=== PATIENT | male | born 1955 | race Caucasian/White ===

== ENCOUNTER 2017-07-01 00:09 | Observation (INO) | payer MEDICAID ==
[2017-07-01 00:09] VITALS: BMI 28.3
--- NOTE | 2017-07-01 00:38 | C.PDOC ---
History Of Present Illness The patient presents to the ED for evaluation of generalized weakness which began around 2-3 days ago. Patient also reports occasional dizziness. He denies chest pain, palpitations, or tinnitus. Time Seen by Provider: 07/01/17 00:37 Chief Complaint (Nursing): Dizziness/Lightheaded History Per: Patient History/Exam Limitations: no limitations Onset/Duration Of Symptoms: Days (2-3) Current Symptoms Are (Timing): Still Present Fall Associated With With Symptoms: No Severity: None Pain Scale Rating Of: 0 Additional History Per: Patient Past Medical History Reviewed: Historical Data, Nursing Documentation, Vital Signs Vital Signs: Last Vital Signs Temp 97.8 F 07/01/17 00:11 Pulse 66 07/01/17 02:40 Resp 12 07/01/17 02:40 BP 118/68 07/01/17 02:40 Pulse Ox 97 07/01/17 03:08 - Medical History PMH: Diabetes, HTN Surgical History: No Surg Hx Family History: States: Unknown Family Hx - Social History Hx Tobacco Use: No Hx Alcohol Use: No Hx Substance Use: No - Immunization History Hx Tetanus Toxoid Vaccination: Yes Hx Influenza Vaccination: Yes Hx Pneumococcal Vaccination: Yes Review Of Systems Constitutional: Positive for: Weakness. Negative for: Fever, Chills Cardiovascular: Negative for: Chest Pain, Palpitations Respiratory: Negative for: Cough, Shortness of Breath Gastrointestinal: Negative for: Nausea, Vomiting, Abdominal Pain Skin: Negative for: Rash, Lesions, Jaundice, Bruising Neurological: Positive for: Dizziness Psych: Negative for: Suicidal ideation Physical Exam - Physical Exam Appears: Non-toxic, No Acute Distress Skin: Warm, Dry Head: Normacephalic Eye(s): bilateral: Normal Inspection Oral Mucosa: Moist Neck: Supple Chest: Symmetrical, No Deformity, No Tenderness Cardiovascular: Rhythm Regular Respiratory: No Rales, No Rhonchi, No Wheezing Extremity: Normal ROM, Capillary Refill (less than 2 seconds ) Neurological/Psych: Oriented x3 Gait: Steady ED Course And Treatment - Laboratory Results Result Diagrams: 07/01/17 00:37 07/01/17 00:37 ECG: Interpreted By Me, Viewed By Me ECG Rhythm: Sinus Rhythm (72), Nonspecific Changes O2 Sat by Pulse Oximetry: 97 (on RA) Pulse Ox Interpretation: Normal Progress Note: Bloodwork and CT Head ordered and reviewed. NIHSS Stroke Scale - Date/Time Evaluation Performed Date Performed: 07/01/17 Time Performed: 00:38 When Was NIHSS Performed: Baseline - How Severe is the Stoke Level of Consciousness: 0=Alert LOC to Questions: 0=Both comments correct LOC to commands: 0=Obeys both correctly Best Gaze: 0=Normal Visual: 0=No visual loss Facial: 0=Normal Motor Arm - Left: 0=No drift Motor Arm - Right: 0=No drift Motor Leg - Left: 0=No drift Motor Leg - Right: 0=No drift Limb Ataxia: 0=Absent Sensory: 0=Normal Best Language: 0=No aphasia Dysarthia: 0=Normal articulation Extinction & Inattention (Neglect): 0=Normal, no object Score: 0 Severity Of Stroke: 0= No Stroke Disposition Discussed With : Jaime Lynne Comment: accepted the pt on his service and took over the care at 3:22 AM Doctor Will See Patient In The: Hospital Counseled Patient/Family Regarding: Studies Performed, Diagnosis - Disposition Disposition: HOSPITALIZED Disposition Time: 00:38 Condition: FAIR Forms: [employer] (Khmer) - POA Present On Arrival: Poor Glycemic Control - Clinical Impression Clinical Impression: Dizziness, Uncontrolled diabetes mellitus - Scribe Statement The provider has reviewed the documentation as recorded by the Scribe (Tiffanie Hilario) Provider Attestation: All medical record entries made by the Scribe were at my direction and personally dictated by me. I have reviewed the chart and agree that the record accurately reflects my personal performance of the history, physical exam, medical decision making, and the department course for this patient. I have also personally directed, reviewed, and agree with the discharge instructions and disposition. Decision To Admit - Pt Status Changed To: Hospital Disposition Of: Inpatient - Admit Certification Admit to Inpatient:: After my assessment, the patient will require hospitalization for at least two midnights. This is because of the severity of symptoms shown, intensity of services needed, and/or the medical risk in this patient being treated as an outpatient. - InPatient: Physician Admission Certification: I certify that this patient requires 2 or more midnights of care for the following reason:: After my assessment, the patient will require hospitalization for at least two midnights. This is because of the severity of symptoms shown, intensity of services needed, and/or the medical risk in this patient being treated as an outpatient. - . Bed Request Type: Telemetry Admitting Physician: Jaime Lynne Patient Diagnosis: Dizziness, Uncontrolled diabetes mellitus
[2017-07-01 00:42] LABS: BASO # 0.1 K/uL (0.0-0.2); BASO % 1.4 % (0.0-2.0); EOS # 0.2 K/uL (0.0-0.7); EOS % 3.1 % (0.0-4.0); HEMOGLOBIN 15.3 g/dL (12.0-18.0); LYMPH # 3.1 K/uL (1.0-4.3); LYMPH % 45.2 % (20.0-40.0); MEAN CELL VOLUME 91.5 fL (80.0-94.0); MEAN CORPUSCULAR HEMOGLOBIN 30.5 pg (27.0-31.0); MEAN CORPUSCULAR HGB CONC 33.3 g/dL (33.0-37.0); MEAN PLATELET VOLUME 10.1 fL (7.2-11.7); MONO # 0.4 K/uL (0.0-0.8); NEUT % 44.3 % (50.0-75.0); NRBC % 0.3 % (0.0-2.0); RBC 5.02 Mil/uL (4.40-5.90); RED CELL DISTRIBUTION WIDTH 14.9 % (11.5-14.5); WHITE BLOOD COUNT 6.9 K/uL (4.8-10.8)
[2017-07-01 01:05] LABS: ALB/GLOB RATIO 1.1 (1.0-2.1); ALBUMIN 4.3 g/dL (3.5-5.0); ALT/SGPT 41 U/L (21-72); AST/SGOT 14 U/L (17-59); BLOOD UREA NITROGEN 16 mg/dL (9-20); CALCIUM 8.3 mg/dl (8.6-10.4); GFR AFRICAN-AMERICAN > 60; GFR NON-AFRICAN AMERICAN > 60
[2017-07-01] MEDS ORDERED: Sodium Chloride 0.9% 1,000 ML IV ONE (01:07)
[2017-07-01] MEDS ORDERED: Sodium Chloride 0.9% 1,000 ML ONE (01:09)
--- NOTE | 2017-07-01 01:44 | CT ---
EXAM: CT Head Without Intravenous Contrast EXAM DATE/TIME: 07/01/2017 12:56 AM CLINICAL HISTORY: 61 years old, male; Pain; Headache and other: Dizziness TECHNIQUE: Axial computed tomography images of the head/brain without intravenous contrast. All CT scans at this facility use one or more dose reduction techniques, viz.: automated exposure control; ma/kV adjustment per patient size (including targeted exams where dose is matched to indication; i.e. head); or iterative reconstruction technique. Coronal and sagittal reformatted images were created and reviewed. COMPARISON: No relevant prior studies available. FINDINGS: No intracranial hemorrhage. No intracranial edema. No evidence of infarct. The sinuses and mastoid air cells are clear. IMPRESSION: No acute findings.
[2017-07-01] MEDS: Sodium Chloride 0.9% 1,000 ML IV SCH ×3 (04:27→21:54)
[2017-07-01 07:54] LABS: BASO % 0.7 % (0.0-2.0); EOS # 0.2 K/uL (0.0-0.7); HEMOGLOBIN 14.2 g/dL (12.0-18.0); LYMPH # 2.5 K/uL (1.0-4.3); LYMPH % 44.3 % (20.0-40.0); MEAN CORPUSCULAR HGB CONC 32.6 g/dL (33.0-37.0); MEAN PLATELET VOLUME 9.8 fL (7.2-11.7); MONO # 0.3 K/uL (0.0-0.8); NEUT # 2.6 K/uL (1.8-7.0); NRBC % 0.1 % (0.0-2.0); RBC 4.72 Mil/uL (4.40-5.90); RED CELL DISTRIBUTION WIDTH 15.1 % (11.5-14.5); WHITE BLOOD COUNT 5.7 K/uL (4.8-10.8)
[2017-07-01 08:07] LABS: ALB/GLOB RATIO 1.6 (1.0-2.1); ALBUMIN 3.7 g/dL (3.5-5.0); ALT/SGPT 39 U/L (21-72); AST/SGOT 12 U/L (17-59); BLOOD UREA NITROGEN 12 mg/dL (9-20); CALCIUM 7.8 mg/dl (8.6-10.4); GFR AFRICAN-AMERICAN > 60; GFR NON-AFRICAN AMERICAN > 60; HDL CHOLESTEROL 38 mg/dL (30-70)
[2017-07-01] MEDS: (Novolog) Insulin Aspart, Recombinant 100 u/ml 10 ml vial SC SCH ×4 (08:14→21:18)
[2017-07-01 08:34] LABS: LDL CHOLESTEROL 128 mg/dL (0-129)
[2017-07-01] MEDS: Enoxaparin 40 mg Syringe SC SCH (09:25)
[2017-07-01] MEDS ORDERED: (Lantus) Insulin Glargine, Recombinant SC SCH (22:00)
[2017-07-02] MEDS: Sodium Chloride 0.9% 1,000 ML IV SCH (04:00)
[2017-07-02] MEDS: (Novolog) Insulin Aspart, Recombinant 100 u/ml 10 ml vial SC SCH ×3 (08:24→17:44)
[2017-07-02] MEDS: Enoxaparin 40 mg Syringe SC SCH (09:40)
[2017-07-02 09:47] LABS: BASO % 0.3 % (0.0-2.0); EOS # 0.1 K/uL (0.0-0.7); EOS % 1.5 % (0.0-4.0); HEMOGLOBIN 14.6 g/dL (12.0-18.0); LYMPH # 2.3 K/uL (1.0-4.3); LYMPH % 32.1 % (20.0-40.0); MEAN CELL VOLUME 92.3 fL (80.0-94.0); MEAN CORPUSCULAR HEMOGLOBIN 30.1 pg (27.0-31.0); MEAN CORPUSCULAR HGB CONC 32.6 g/dL (33.0-37.0); MEAN PLATELET VOLUME 9.6 fL (7.2-11.7); MONO # 0.3 K/uL (0.0-0.8); MONO % 4.2 % (0.0-10.0); NEUT # 4.4 K/uL (1.8-7.0); NEUT % 61.9 % (50.0-75.0); NRBC % 0.2 % (0.0-2.0); RBC 4.83 Mil/uL (4.40-5.90); RED CELL DISTRIBUTION WIDTH 15.6 % (11.5-14.5); WHITE BLOOD COUNT 7.1 K/uL (4.8-10.8)
[2017-07-02 09:53] LABS: BLOOD UREA NITROGEN 11 mg/dL (9-20); CALCIUM 8.1 mg/dl (8.6-10.4); GFR AFRICAN-AMERICAN > 60; GFR NON-AFRICAN AMERICAN > 60
[2017-07-02 15:48] VITALS: BP 153/87; RESP 20; TEMP 98.5; O2SAT 100
[2017-07-02 18:51] VITALS: PULSE 80
--- NOTE | 2017-07-02 22:06 | CP.PCM.HP ---
History of Present Illness - History of Present Illness History of Present Illness: CC: weakness and dizziness HPI: The patient presents to the ED for evaluation of generalized weakness which began around 2-3 days ago. Patient also reports occasional dizziness. He denies chest pain, palpitations, or tinnitus. Present on Admission - Present on Admission Any Indicators Present on Admission: No Past Patient History - Past Medical History & Family History Past Medical History?: Yes - Past Social History Smoking Status: Never Smoked - CARDIAC Hx Cardiac Disorders: Yes Hx Hypertension: Yes - PULMONARY Hx Respiratory Disorders: No - NEUROLOGICAL Hx Neurological Disorder: No - HEENT Hx HEENT Problems: No - RENAL Hx Chronic Kidney Disease: No - ENDOCRINE/METABOLIC Hx Endocrine Disorders: Yes Hx Diabetes Mellitus Type 2: Yes - HEMATOLOGICAL/ONCOLOGICAL Hx Blood Disorders: No - INTEGUMENTARY Hx Dermatological Problems: No - MUSCULOSKELETAL/RHEUMATOLOGICAL Hx Musculoskeletal Disorders: No Hx Falls: No - GASTROINTESTINAL Hx Gastrointestinal Disorders: No - GENITOURINARY/GYNECOLOGICAL Hx Genitourinary Disorders: No - PSYCHIATRIC Hx Psychophysiologic Disorder: No Hx Substance Use: No - SURGICAL HISTORY Hx Surgeries: No - ANESTHESIA Hx Anesthesia: No Hx Anesthesia Reactions: No Hx Malignant Hyperthermia: No Has any member of the family had a problem w/ anesthesia?: No Meds Allergies/Adverse Reactions: Allergies Allergy/AdvReac Type Severity Reaction Status Date / Time No Known Allergies Allergy Verified 07/01/17 00:16 Results - Vital Signs Recent Vital Signs: Last Vital Signs Temp 98.5 F 07/02/17 15:44 Pulse 80 07/02/17 16:00 Resp 20 07/02/17 15:44 BP 153/87 H 07/02/17 15:44 Pulse Ox 100 07/02/17 15:44 - Labs Result Diagrams: 07/02/17 09:35 07/02/17 09:35 Labs: Laboratory Results - last 24 hr 07/02/17 07/02/17 07/02/17 06:08 09:35 09:35 WBC 7.1 RBC 4.83 Hgb 14.6 Hct 44.6 MCV 92.3 MCH 30.1 MCHC 32.6 L RDW 15.6 H Plt Count 255 MPV 9.6 Neut % (Auto) 61.9 Lymph % (Auto) 32.1 [place] % (Auto) 4.2 Eos % (Auto) 1.5 Baso % (Auto) 0.3 Neut # 4.4 Lymph # 2.3 [place] # 0.3 Eos # 0.1 Baso # 0.0 Sodium 137 Potassium 4.0 Chloride 100 Carbon Dioxide 32 H Anion Gap 10 BUN 11 Creatinine 0.7 L Est GFR ( Amer) > 60 Est GFR (Non-Af Amer) > 60 POC Glucose (mg/dL) 197 H Random Glucose 279 H Calcium 8.1 L 07/02/17 07/02/17 11:35 15:58 WBC RBC Hgb Hct MCV MCH MCHC RDW Plt Count MPV Neut % (Auto) Lymph % (Auto) [place] % (Auto) Eos % (Auto) Baso % (Auto) Neut # Lymph # [place] # Eos # Baso # Sodium Potassium Chloride Carbon Dioxide Anion Gap BUN Creatinine Est GFR ( Amer) Est GFR (Non-Af Amer) POC Glucose (mg/dL) 161 H 188 H Random Glucose Calcium
[2017-07-03] MEDS ORDERED: Influenza Vaccine 60 mcg/0.5 mL SYR (4YR UP) IM ONE (14:00)
[2017-07-03] MEDS ORDERED: Pneumococcal 23-Valent Vaccine IM ONE (14:00)
--- NOTE | 2017-07-04 09:36 | CARD ---
APPROVED REPORT EKG Measurement Heart [id number] <Conclusion> Sinus rhythm with 1st degree AV block Otherwise normal ECG
== END 2017-07-02 18:45 | disposition home or self-care (01) ==
LOC: C.ER 00:09 → C.6T 03:30 → INTOOBSV 03:30
PROVIDERS: ADMIT Internal Medicine; ATTEND Internal Medicine
DX: E11.65 Type 2 diabetes mellitus with hyperglycemia (principal); I10 Essential (primary) hypertension
CPT/HCPCS: 36415; 70450; 80048; 80053; 80061; 82009; 82948; 83036; 85025; 93005; 99285; G0378; J1650; J7040

== ENCOUNTER 2018-10-24 23:20 | Emergency (ER) | payer SELFPAY ==
[2018-10-24 23:20] VITALS: BMI 28.3
[2018-10-25] MEDS ORDERED: Sodium Chloride 0.9% 1,000 ML IV ONE (00:05)
[2018-10-25 00:32] LABS: BASO # 0.1 K/uL (0.0-0.2); BASO % 1.4 % (0.0-2.0); EOS # 0.2 K/uL (0.0-0.7); EOS % 3.3 % (0.0-4.0); HEMOGLOBIN 15.4 g/dL (12.0-18.0); LYMPH # 3.4 K/uL (1.0-4.3); LYMPH % 49.1 % (20.0-40.0); MEAN CELL VOLUME 94.5 fL (80.0-94.0); MEAN CORPUSCULAR HEMOGLOBIN 31.9 pg (27.0-31.0); MEAN CORPUSCULAR HGB CONC 33.8 g/dL (33.0-37.0); MEAN PLATELET VOLUME 9.4 fL (7.2-11.7); MONO # 0.4 K/uL (0.0-0.8); MONO % 5.4 % (0.0-10.0); NEUT # 2.8 K/uL (1.8-7.0); NEUT % 40.8 % (50.0-75.0); NRBC % 0.2 % (0.0-2.0); RBC 4.81 Mil/uL (4.40-5.90); RED CELL DISTRIBUTION WIDTH 15.5 % (11.5-14.5); WHITE BLOOD COUNT 6.8 K/uL (4.8-10.8)
--- NOTE | 2018-10-25 00:47 | C.PDOC ---
Time Seen by Provider: 10/25/18 00:05 Chief Complaint (Nursing): Dizziness/Lightheaded Past Medical History Reviewed: Historical Data, Nursing Documentation, Vital Signs Vital Signs: Last Vital Signs Temp 98.2 F 10/24/18 23:41 Pulse 78 10/24/18 23:41 Resp 16 10/24/18 23:41 BP 158/89 H 10/24/18 23:41 Pulse Ox 97 10/24/18 23:41 - Medical History PMH: Diabetes, HTN Denies: Chronic Kidney Disease Family History: States: No Known Family Hx - Social History Hx Tobacco Use: No Hx Alcohol Use: No (Socially) Hx Substance Use: No - Immunization History Hx Tetanus Toxoid Vaccination: Yes Hx Influenza Vaccination: Yes Hx Pneumococcal Vaccination: Yes ED Course And Treatment - Laboratory Results Result Diagrams: 10/25/18 00:27 10/25/18 00:27 ECG: Interpreted By Me, Viewed By Me ECG Rhythm: Sinus Rhythm (82), 1st Degree HB, Nonspecific Changes O2 Sat by Pulse Oximetry: 97 Pulse Ox Interpretation: Normal Medical Decision Making Medical Decision Making: Upon provider reevaluation patient is feeling better, is medically stable, and requires no further treatment in the ED at this time. Patient will be discharged home with Rx for metformin . Counseling was provided and all questions were answered regarding diagnosis and need for follow up with dr mohan. There is agreement to discharge plan. Return if symptoms persist or worsen. Disposition Counseled Patient/Family Regarding: Studies Performed, Diagnosis, Need For Followup, Rx Given - Disposition Referrals: Fatimah Mohan MD [Staff Provider] - Disposition: HOME/ ROUTINE Disposition Time: 01:29 Condition: FAIR Additional Instructions: Please return if symptoms recur Prescriptions: MetFORMIN [glucoPHAGE] 1,000 mg PO BID #30 tab Instructions: Hyperglycemia, Adult (DC) Forms: [employer] (Ethiopian) Print Language: BENINESE - Clinical Impression Clinical Impression: Hyperglycemia, Medication refill
[2018-10-25 00:55] LABS: ALB/GLOB RATIO 1.8 (1.0-2.1); ALBUMIN 4.4 g/dL (3.5-5.0); BLOOD UREA NITROGEN 21 mg/dL (9-20); CALCIUM 9.3 mg/dl (8.6-10.4); GFR NON-AFRICAN AMERICAN > 60; LIPASE 184 U/L (23-300)
[2018-10-25 00:57] LABS: ALT/SGPT 11 U/L (21-72); AST/SGOT 26 U/L (17-59)
[2018-10-25 01:19] LABS: VENOUS BLOOD GAS BASE EXCESS 2.9 mmol/L (0.0-2.0); VENOUS BLOOD GAS PCO2 54 mmHg (40-60); VENOUS BLOOD GAS PO2 22 mm/Hg (30-55); VENOUS BLOOD PH 7.35 (7.32-7.43)
[2018-10-25 01:47] VITALS: BP 149/74; PULSE 83; RESP 20; TEMP 97.8; O2SAT 100
[2018-10-25 02:10] LABS: URINE BILIRUBIN NEGATIVE (NEGATIVE); URINE BLOOD NEGATIVE (NEGATIVE); URINE CLARITY Clear (Clear); URINE COLOR Yellow (YELLOW); URINE GLUCOSE (UA) 3+ mg/dL (Normal); URINE LEUKOCYTE ESTERASE NEG Leu/uL (Negative); URINE PROTEIN NEGATIVE (NEGATIVE); URINE UROBILINOGEN NORMAL mg/dL (0.2-1.0)
--- NOTE | 2018-10-25 09:37 | RAD ---
Date of service: 10/25/2018 PROCEDURE: CHEST RADIOGRAPH, 1 VIEW HISTORY: Diabetic COMPARISON: 12/26/2014 FINDINGS: LUNGS: Clear. PLEURA: No pneumothorax or pleural fluid seen. CARDIOVASCULAR: No aortic atherosclerotic calcification present. Normal. OSSEOUS STRUCTURES: No significant abnormalities. VISUALIZED UPPER ABDOMEN: Normal. OTHER FINDINGS: None. IMPRESSION: No interval/active disease. Comments: No preliminary ER impression at this time.
--- NOTE | 2018-10-26 16:40 | CARD ---
APPROVED REPORT Date of service: 10/25/2018 EKG Measurement Heart [id number] <Conclusion> Sinus rhythm with 1st degree AV block Otherwise normal ECG
== END 2018-10-25 02:00 | disposition home or self-care (01) ==
LOC: C.ER 23:20
DX: E11.65 Type 2 diabetes mellitus with hyperglycemia (principal); Z79.4 Long term (current) use of insulin; Z76.0 Encounter for issue of repeat prescription
CPT/HCPCS: 71045; 80053; 81001; 82803; 82948; 83690; 85025; 93005; 99285; J7030

== ENCOUNTER 2018-10-27 13:08 | Emergency (ER) | payer SELFPAY ==
[2018-10-27 13:09] VITALS: BMI 28.3
[2018-10-27 13:21] VITALS: BP 163/87; PULSE 83; RESP 18; TEMP 97.8; O2SAT 96
--- NOTE | 2018-10-27 13:36 | C.PDOC ---
History Of Present Illness 63 y/o male presents to the ER requesting medication refill for insulin pen. Patient states that he has history of diabetes and HTN. Patient denies having fever,chills, headache,dizziness, CP,SOB, nausea, and vomiting. PMD: Time Seen by Provider: 10/27/18 13:22 Chief Complaint (Nursing): Med Refill History Per: Patient History/Exam Limitations: no limitations Past Medical History Reviewed: Historical Data, Nursing Documentation, Vital Signs Vital Signs: Last Vital Signs Temp 97.8 F 10/27/18 13:12 Pulse 83 10/27/18 13:12 Resp 18 10/27/18 13:12 BP 163/87 H 10/27/18 13:12 Pulse Ox 96 10/27/18 13:12 - Medical History PMH: Diabetes, HTN Denies: Chronic Kidney Disease Surgical History: No Surg Hx Family History: States: No Known Family Hx - Social History Hx Tobacco Use: No Hx Alcohol Use: No (Socially) Hx Substance Use: No - Immunization History Hx Tetanus Toxoid Vaccination: Yes Hx Influenza Vaccination: Yes Hx Pneumococcal Vaccination: Yes Review Of Systems Except As Marked, All Systems Reviewed And Found Negative. Constitutional: Negative for: Fever, Chills Cardiovascular: Negative for: Chest Pain Respiratory: Negative for: Shortness of Breath Gastrointestinal: Negative for: Nausea, Vomiting, Abdominal Pain Physical Exam - Physical Exam Appears: Non-toxic, No Acute Distress, Other (comfortable, AOX3) Skin: Normal Color, Warm, Dry Head: Atraumatic, Normacephalic Eye(s): bilateral: Normal Inspection Cardiovascular: Rhythm Regular Respiratory: Normal Breath Sounds, No Rales, No Rhonchi, No Wheezing Gait: Steady ED Course And Treatment O2 Sat by Pulse Oximetry: 96 (RA) Pulse Ox Interpretation: Normal Disposition Counseled Patient/Family Regarding: Diagnosis, Need For Followup, Rx Given - Disposition Referrals: Fatimah Mohan MD [Staff Provider] - Disposition: HOME/ ROUTINE Disposition Time: 13:40 Condition: STABLE Additional Instructions: FOLLOW UP WITH YOUR DOCTOR/CLINIC IN 1-2 DAYS USE MEDICATIONS DIRECTED RETURN TO EMERGENCY ROOM IF YOUR SYMPTOMS BECOME WORSE SEGUIR CON PRIDE MDICO / CLNICA EN 1-2 MUNOZ UTILICE MEDICAMENTOS FARRUKH SE DIRIGE VUELVA A LA KEIRA DE EMERGENCIA SI SARITA SNTOMAS SE HACEN PEOR Prescriptions: Insulin Glargine,Hum.rec.anlog [Ernie Sanz U-100] 30 unit SQ DAILY #30 insuln.pen Forms: [facility] (Senegalese), General Discharge Instructions - Clinical Impression Clinical Impression: Medication refill - Scribe Statement The provider has reviewed the documentation as recorded by the Scribe Parrish Venegas Provider Attestation: All medical record entries made by the Scribe were at my direction and personally dictated by me. I have reviewed the chart and agree that the record accurately reflects my personal performance of the history, physical exam, medical decision making, and the department course for this patient. I have also personally directed, reviewed, and agree with the discharge instructions and disposition.
== END 2018-10-27 13:48 | disposition home or self-care (01) ==
LOC: C.ER 13:08
DX: Z76.0 Encounter for issue of repeat prescription (principal); E11.9 Type 2 diabetes mellitus without complications; I10 Essential (primary) hypertension

== ENCOUNTER 2018-11-01 21:04 | Emergency (ER) | payer OTHER ==
[2018-11-01 21:04] VITALS: BMI 28.3
[2018-11-01 21:24] VITALS: BP 168/93; PULSE 82; RESP 20; TEMP 98.9; O2SAT 99
--- NOTE | 2018-11-01 21:56 | C.PDOC ---
History Of Present Illness 63 year old male presents with painful rash to the left lower back area for the past 5 days. Denies dysuria, hematuria, trauma or past Hx of similar. He has not taken anything for the pain, states it initially was not so painful until it began healing. Time Seen by Provider: 11/01/18 21:25 Chief Complaint (Nursing): Abnormal Skin Integrity History Per: Patient History/Exam Limitations: no limitations Onset/Duration Of Symptoms: Days (5) Current Symptoms Are (Timing): Still Present Location Of Injury: Left: Back Quality Of Symptoms: Painful Recent travel outside of the [place]: No Past Medical History Reviewed: Historical Data, Nursing Documentation, Vital Signs Vital Signs: Last Vital Signs Temp 98.9 F 11/01/18 21:20 Pulse 82 11/01/18 21:20 Resp 20 11/01/18 21:20 BP 168/93 H 11/01/18 21:20 Pulse Ox 99 11/01/18 21:20 - Medical History PMH: Diabetes, HTN Denies: Chronic Kidney Disease Family History: States: Unknown Family Hx - Social History Hx Tobacco Use: No Hx Alcohol Use: No (Socially) Hx Substance Use: No - Immunization History Hx Tetanus Toxoid Vaccination: No Hx Influenza Vaccination: No Hx Pneumococcal Vaccination: No Review Of Systems Constitutional: Negative for: Fever, Chills Genitourinary: Negative for: Dysuria, Hematuria Skin: Positive for: Rash Neurological: Negative for: Weakness, Numbness Physical Exam - Physical Exam Appears: Non-toxic Skin: Warm, Dry, Rash (Healing hyperpigmented herpetiform rash in a dermatomal pattern from left mid spine to left lumbar and abdomen) Head: Atraumatic, Normacephalic Eye(s): bilateral: Normal Inspection Oral Mucosa: Moist Gastrointestinal/Abdominal: Soft, No Tenderness Back: No CVA Tenderness, No Vertebral Tenderness, No Paraspinal Tenderness Neurological/Psych: Oriented x3, Normal Speech ED Course And Treatment O2 Sat by Pulse Oximetry: 99 (room air) Pulse Ox Interpretation: Normal Progress Note: Toradol administered. Patient reports improvement of symptoms, he is resting comfortably in no acute distress, vitals are stable, will discharge home with Rx and instructions to follow up with PMD.Pt with rash for over 5 days, appear dry , healing. Antivirals are no longer indicated for this occurence, Rx lido patch and gabapentin Disposition Counseled Patient/Family Regarding: Diagnosis, Need For Followup, Rx Given - Disposition Referrals: Fatimah Mohan MD [Staff Provider] - Disposition: HOME/ ROUTINE Disposition Time: 21:54 Condition: STABLE Additional Instructions: Take medications as directed Follow up with PMD Return to ER if worse Prescriptions: Gabapentin 300 mg PO TID PRN #30 capsule PRN Reason: Pain, Moderate (4-7) Lidocaine 5% [Lidoderm] 1 ea TD DAILY #20 patch Instructions: Shingles (DC) Forms: [employer] (Macedonian) Print Language: LIBERIAN - Clinical Impression Clinical Impression: Shingles, Neuralgia, postherpetic - PA / DEPOSITION REPORTER / Resident Statement MD/DO has reviewed & agrees with the documentation as recorded. - Scribe Statement The provider has reviewed the documentation as recorded by the Scribfatmata Gonzalez All medical record entries made by the Scribe were at my direction and personally dictated by me. I have reviewed the chart and agree that the record accurately reflects my personal performance of the history, physical exam, medical decision making, and the department course for this patient. I have also personally directed, reviewed, and agree with the discharge instructions and disposition.
== END 2018-11-01 22:33 | disposition home or self-care (01) ==
LOC: C.ER 21:04
DX: B02.29 Other postherpetic nervous system involvement (principal)
CPT/HCPCS: 96372; 99284; J1885

== ENCOUNTER 2018-11-30 23:57 | Emergency (ER) | payer OTHER ==
[2018-11-30 23:57] VITALS: BMI 28.3
[2018-12-01 00:15] VITALS: TEMP 98.9
--- NOTE | 2018-12-01 01:00 | C.PDOC ---
Time Seen by Provider: 12/01/18 00:22 Chief Complaint (Nursing): Med Refill Past Medical History Vital Signs: Last Vital Signs Temp 98.9 F 12/01/18 00:09 Pulse 93 H 12/01/18 00:09 Resp 20 12/01/18 00:09 BP 171/91 H 12/01/18 00:09 Pulse Ox 96 12/01/18 00:09 Primary Care Provider: Fatimah Mohan - Medical History PMH: Diabetes, HTN Denies: Chronic Kidney Disease Family History: States: Unknown Family Hx - Social History Hx Tobacco Use: No Hx Alcohol Use: No (Socially) Hx Substance Use: No - Immunization History Hx Tetanus Toxoid Vaccination: No Hx Influenza Vaccination: No Hx Pneumococcal Vaccination: No ED Course And Treatment O2 Sat by Pulse Oximetry: 96 Disposition Counseled Patient/Family Regarding: Diagnosis, Need For Followup, Rx Given - Disposition Disposition: HOME/ ROUTINE Disposition Time: 00:49 Condition: STABLE Additional Instructions: Please follow up with PMD Por favor hace anil con rodriguez doctor primario ahora para evaluation cuando regresa de vacationes Take medications as directed Return to ER if worse Prescriptions: Insulin Glargine,Hum.rec.anlog [Ernie Sanz U-100] 30 unit SQ DAILY #5 insuln.pen Forms: Gen Discharge Inst Japanese - Clinical Impression Clinical Impression: Medication refill, Diabetes
[2018-12-01 01:16] VITALS: BP 149/80; PULSE 81; RESP 18; O2SAT 100
--- NOTE | 2018-12-01 02:38 | C.PDOC ---
History Of Present Illness 63 year old male presents to the ER requesting a refill of his basaglar insulin pen and metformin. Patient states he leaves for the [place] in two days and his PMD Dr. Mohan is away. Denies any symptoms at this time. Time Seen by Provider: 12/01/18 00:22 Chief Complaint (Nursing): Med Refill History Per: Patient History/Exam Limitations: no limitations Onset/Duration Of Symptoms: Hrs Recent travel outside of the [place]: No Past Medical History Reviewed: Historical Data, Nursing Documentation, Vital Signs Vital Signs: Last Vital Signs Temp 98.9 F 12/01/18 00:09 Pulse 81 12/01/18 01:16 Resp 18 12/01/18 01:16 BP 149/80 12/01/18 01:16 Pulse Ox 100 12/01/18 01:16 Primary Care Provider: Fatimah Mohan - Medical History PMH: Diabetes, HTN Denies: Chronic Kidney Disease Family History: States: Unknown Family Hx - Social History Hx Tobacco Use: No Hx Alcohol Use: No (Socially) Hx Substance Use: No - Immunization History Hx Tetanus Toxoid Vaccination: No Hx Influenza Vaccination: No Hx Pneumococcal Vaccination: No Review Of Systems Constitutional: Negative for: Fever, Chills Cardiovascular: Negative for: Chest Pain, Palpitations Respiratory: Negative for: Cough, Shortness of Breath Gastrointestinal: Negative for: Nausea, Vomiting Neurological: Negative for: Weakness, Numbness Physical Exam - Physical Exam Appears: Well, Non-toxic, No Acute Distress Skin: Normal Color Head: Atraumatic, Normacephalic Eye(s): bilateral: Normal Inspection Respiratory: Other (Normal inspiratory effort) Extremity: Normal ROM (x4) Neurological/Psych: Oriented x3, Normal Speech Gait: Steady ED Course And Treatment O2 Sat by Pulse Oximetry: 100 (Room air) Pulse Ox Interpretation: Normal Progress Note: Patient has one insulin pen left, last pen was given to him in the ER, patient given Rx and advised to follow up with Dr. Mohan in the future for refills. Disposition - Disposition Disposition: HOME/ ROUTINE Disposition Time: 00:40 Condition: STABLE Additional Instructions: Please follow up with PMD Por favor hace anil con rodriguez doctor primario ahora para evaluation cuando regresa de vacationes Take medications as directed Return to ER if worse Prescriptions: Insulin Glargine,Hum.rec.anlog [Basaglar Kwikpen U-100] 30 unit SQ DAILY #5 insuln.pen MetFORMIN [glucoPHAGE] 1,000 mg PO DAILY #40 tab Forms: Gen Discharge Inst Syriac - Clinical Impression Clinical Impression: Medication refill, Diabetes - PA / [employer] WE[employer] DEVELOPER / Resident Statement MD/DO has reviewed & agrees with the documentation as recorded. - Scribe Statement The provider has reviewed the documentation as recorded by the Scribfatmata Gonzalez All medical record entries made by the Analyibfatmata were at my direction and personally dictated by me. I have reviewed the chart and agree that the record accurately reflects my personal performance of the history, physical exam, medical decision making, and the department course for this patient. I have also personally directed, reviewed, and agree with the discharge instructions and disposition.
== END 2018-12-01 01:16 | disposition home or self-care (01) ==
LOC: C.ER 23:57
DX: Z76.0 Encounter for issue of repeat prescription (principal); E11.9 Type 2 diabetes mellitus without complications; I10 Essential (primary) hypertension